=== PATIENT | female | born 1980 | race Asian ===

== ENCOUNTER 2016-11-10 05:09 | Inpatient (IN) | payer SELFPAY ==
[~2016-11-10] VITALS: Ht 158 cm; Wt 60.0 kg
[2016-11-10] MEDS ORDERED: LACTATED RINGERS 1,000 ML IV SCH (05:36)
[2016-11-10] MEDS ORDERED: PNV1COMB PO (05:36)
[2016-11-10] MEDS ORDERED: IBUPROFEN 800 MG TAB PO PRN (05:40)
[2016-11-10 06:08] LABS: BASOPHILS # (AUTO) 0.1 K/uL (0.00-0.22); BASOPHILS % (AUTO) 1.4 % (0.0-2.0); EOSINOPHILS # (AUTO) 0.1 K/uL (0-0.4); EOSINOPHILS % (AUTO) 1.1 % (0.0-4.0); HEMATOCRIT 37.5 % (36-48); HEMOGLOBIN 12.5 g/dL (12.0-16.0); LYMPHOCYTES % (AUTO) 23.5 % (20.5-51.1); MEAN CORPUSCULAR HEMOGLOBIN 30 pg (27-31); MEAN CORPUSCULAR HGB CONC 33 g/dL (33-37); MEAN CORPUSCULAR VOLUME 89 fL (80-94); MONOCYTES # (AUTO) 0.5 K/uL (0.8-1.0); MONOCYTES % (AUTO) 5.9 % (1.7-9.3); NEUTROPHILS # (AUTO) 5.9 K/uL (1.8-7.7); NEUTROPHILS % (AUTO) 68.1 % (42.2-75.2); PLATELET COUNT (AUTO) 265 K/uL (140-450); RED CELL DISTRIBUTION WIDTH 12.1 % (11.6-13.7); WHITE BLOOD COUNT (AUTO) 8.6 K/uL (4.8-10.8)
[2016-11-10 06:28] LABS: ALBUMIN 2.8 g/dL (3.4-5.0); ANION GAP 5.9 (8-16); CARBON DIOXIDE 20.3 mmol/L (21-32); CREATININE 0.7 mg/dL (0.6-1.3); POTASSIUM 3.2 mmol/L (3.5-5.1); TOTAL BILIRUBIN 0.5 mg/dL (0.0-1.0)
[2016-11-10 06:51] LABS: BILIRUBIN,URINE NEGATIVE (NEGATIVE); BLOOD, URINE NEGATIVE (NEGATIVE); COLOR,URINE YELLOW (YELLOW); LEUKOCYTE ESTERASE ,URINE 2+ (NEGATIVE); NITRITE, URINE NEGATIVE (NEGATIVE); UGLUCOSE NEGATIVE (NEGATIVE)
[2016-11-10 06:53] LABS: APPEARANCE,URINE HAZY (CLEAR)
[2016-11-10 06:54] VITALS: BP 116/76
[2016-11-10 06:55] LABS: RBC,URINE 0-5 (RARE) /HPF (0-5)
[2016-11-10] MEDS ORDERED: ONDANSETRON 4 MG/2 ML VIAL IVP ONE (07:15)
[2016-11-10] MEDS ORDERED: BUPIVACAINE-MPF 0.75% 10 ML VIAL INJ ONE (07:15)
[2016-11-10] MEDS ORDERED: fentaNYL 0.05 MG/ML VIAL ONE (07:28)
[2016-11-10] MEDS ORDERED: KETAMINE 500 MG/5 ML VIAL ONE (07:28)
[2016-11-10] MEDS ORDERED: MIDAZOLAM 2 MG/2 ML VIAL ONE (07:28)
[2016-11-10] MEDS ORDERED: MORPHINE PRES FREE 10 MG/10 ML AMP IV ONE (07:29)
[2016-11-10] MEDS ORDERED: OXYTOCIN 10 UNITS/ML VIAL ONE (07:32)
[2016-11-10] MEDS ORDERED: TRIAMCINOLONE 40 MG/ML 5ML VIAL ONE (07:32)
[2016-11-10] MEDS ORDERED: KETOROLAC 30 MG/ML VIAL IVP PRN (08:15)
[2016-11-10] MEDS ORDERED: diphenhydrAMINE 50 MG/ML VIAL IVP PRN (08:15)
[2016-11-10] MEDS ORDERED: ONDANSETRON 4 MG/2 ML VIAL IVP PRN (08:15)
[2016-11-10] MEDS ORDERED: OXYTOCIN 20 UNITS/LR PREMIX 1,000 ML IV ONE (09:33)
--- NOTE | 2016-11-10 11:25 | NUR ---
PATIENT HAS BEEN SCREENED AND CATEGORIZED LOW NUTRITION RISK. PATIENT WILL BE SEEN WITHIN 7 DAYS OF ADMISSION. 11/16/[address]
[2016-11-10] MEDS ORDERED: METHYLERGONOVINE 0.2 MG/ML AMP IM PRN (11:30)
[2016-11-10] MEDS ORDERED: oxyCODONE/APAP 5/325 MG 1 TAB TAB PO PRN (11:30)
[2016-11-10] MEDS: OXYTOCIN 20 UNITS/LR PREMIX 1,000 ML IV SCH ×2 (11:30→18:28)
[2016-11-10] MEDS ORDERED: HYDROcodone/APAP 5/325 MG 1 TAB TAB PO PRN (11:30)
[2016-11-10] MEDS ORDERED: TEMAZEPAM 15 MG CAP PO PRN (11:30)
[2016-11-10] MEDS ORDERED: MEASLES, MUMPS, AND RUBELLA 1 VIAL SQVAC PRN (11:30)
[2016-11-10] MEDS ORDERED: TRIMETHOBENZAMIDE 200 MG/2 ML SYR IM PRN (11:30)
--- NOTE | 2016-11-10 15:10 | NUR ---
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
[2016-11-10] MEDS: DOCUSATE SOD/SENNA 50/8.6 MG 1 TAB PO SCH (20:29)
[2016-11-11] MEDS: OXYTOCIN 20 UNITS/LR PREMIX 1,000 ML IV SCH (02:47)
[2016-11-11 05:26] LABS: BASOPHILS # (AUTO) 0.1 K/uL (0.00-0.22); BASOPHILS % (AUTO) 0.7 % (0.0-2.0); EOSINOPHILS # (AUTO) 0.3 K/uL (0-0.4); EOSINOPHILS % (AUTO) 2.3 % (0.0-4.0); HEMATOCRIT 29.9 % (36-48); LYMPHOCYTES # (AUTO) 1.4 K/uL (2.5-16.5); LYMPHOCYTES % (AUTO) 9.3 % (20.5-51.1); MEAN CORPUSCULAR HEMOGLOBIN 30 pg (27-31); MEAN CORPUSCULAR HGB CONC 34 g/dL (33-37); MEAN CORPUSCULAR VOLUME 89 fL (80-94); MONOCYTES # (AUTO) 0.9 K/uL (0.8-1.0); MONOCYTES % (AUTO) 5.9 % (1.7-9.3); NEUTROPHILS # (AUTO) 12.4 K/uL (1.8-7.7); NEUTROPHILS % (AUTO) 81.8 % (42.2-75.2); PLATELET COUNT (AUTO) 263 K/uL (140-450); RED BLOOD CELL COUNT(AUTO) 3.36 MIL/uL (4.20-5.40); RED CELL DISTRIBUTION WIDTH 12.3 % (11.6-13.7); WHITE BLOOD COUNT (AUTO) 15.1 K/uL (4.8-10.8)
[2016-11-11] MEDS: SIMETHICONE 80 MG TAB.CHEW PO PRN (12:26)
[2016-11-11] MEDS: DOCUSATE SOD/SENNA 50/8.6 MG 1 TAB PO SCH (21:17)
[2016-11-12] MEDS: CEPHALEXIN 500 MG CAP PO SCH ×4 (00:03→18:10)
[2016-11-12] MEDS: SIMETHICONE 80 MG TAB.CHEW PO PRN (12:42)
[2016-11-12] MEDS: DOCUSATE SOD/SENNA 50/8.6 MG 1 TAB PO SCH (21:03)
[2016-11-13] MEDS: CEPHALEXIN 500 MG CAP PO SCH ×3 (06:16→11:58)
== END 2016-11-13 16:05 | disposition home or self-care (01) | DRG 766 ==
LOC: MLD 05:09 → MFCC 09:42
PROVIDERS: ADMIT Obstetrics & Gynecology; ATTEND Obstetrics & Gynecology
PROC: 0UB70ZZ Excision of Bilateral Fallopian Tubes, Open Approach (ICD-10-PCS; 2016-11-10)
PROC: 10D00Z1 Extraction of Products of Conception, Low, Open Approach (ICD-10-PCS; principal; 2016-11-10 07:30)
DX: O32.1XX0 Maternal care for breech presentation, not applicable or unspecified (principal); Z37.0 Single live birth; Z3A.40 40 weeks gestation of pregnancy; O34.219 Maternal care for unspecified type scar from previous cesarean delivery
CPT/HCPCS: 36415; 80053; 81001; 85025; 86592; 86886; 86900; 86901; 87086; J0690; J2250; J2270; J2405; J2590; J3010; J3301; J3490; J7060; J7120